=== PATIENT | male | born 1965 ===

== ENCOUNTER 2018-04-20 14:30 | Outpatient (CLI) | payer BC ==
--- NOTE | 2018-04-20 16:10 | Diagnostic Imaging Report ---
Indication: Fever, pelvic and perineal pain Technique: No oral contrast, reason not stated. IV administration nonionic contrast. Spiral acquisitions obtained through the pelvis. Multiplanar reconstructions generated. Total dose length product 890.4 mGycm. CTDIvol(s) 19.51 mGy. Dose reduction achieved using automated exposure control Comparison: none Findings: No evidence of perirectal or perianal or perineal abscess or inflammation demonstrated. There is a small right scrotal hydrocele incidentally noted. The pelvic viscera are unremarkable. The appendix is normal. There is a tiny fat-containing umbilical hernia. The bones are unremarkable. Impression: Negative The CT scanner at [facility] is accredited by the [employer] and the scans are performed using protocols designed to limit radiation exposure to as low as reasonably achievable to attain images of sufficient resolution adequate for diagnostic evaluation.
== END 2018-04-20 16:30 | disposition home or self-care (01) ==
LOC: CAT 14:30
DX: R10.2 Pelvic and perineal pain (principal); R50.9 Fever, unspecified; K42.9 Umbilical hernia without obstruction or gangrene; N43.3 Hydrocele, unspecified
CPT/HCPCS: 72193; Q9967